=== PATIENT | female | born 1990 | race Caucasian/White ===

== ENCOUNTER 2019-02-21 11:10 | Emergency (ER) | payer OTHER ==
[~2019-02-21] VITALS: Ht 172.7 cm; Wt 108.9 kg
[2019-02-21] MEDS ORDERED: NKM (11:16)
[2019-02-21 11:23] VITALS: BP 119/85
--- NOTE | 2019-02-21 11:24 | NUR ---
ED Nurse Note: Patient ambulated to ER c/o self needle poking incident from doctor's office. 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 Patient alert and oriented x4 and ambulatory. skin clean and intact. calm and cooperative. no acute distress noted at this time.
--- NOTE | 2019-02-21 12:30 | NUR ---
ED Nurse Note: blood drawn and sent to the lab and pt ambulated to bathroom in stable condition with steady gait.
--- NOTE | 2019-02-21 13:29 | NUR ---
ED Nurse Note: called lab for reminder to run the urine test. they have sample and will run the test.
--- NOTE | 2019-02-21 13:47 | Emergency Room Report ---
History of Present Illness General Chief Complaint: General Complaint Source: Patient Present Illness HPI Patient is a 28-year-old female who presented after injury to her right index finger. Patient reportedly had stuck herself accidentally with a needle which had been exposed to patient's blood. Patient was working for [employer]. She reports having mild pain. Patient was known HIV positive with undetectable viral load. Allergies: Coded Allergies: No Known Allergies (Unverified , 02/21/19) Patient History Past Medical History: see triage record Last Menstrual Period: 02/03/19 Now: No : 3 Para: 2 Reviewed Nursing Documentation: PMH: Agreed; PSxH: Agreed Nursing Documentation-PMH Past Medical History: No Stated History Review of Systems All Other Systems: negative except mentioned in HPI Physical Exam Vital Signs Date Time Temp Pulse Resp B/P (MAP) Pulse Ox O2 Delivery O2 Flow Rate FiO2 02/21/19 11:12 98.8 72 16 119/85 (96) 97 Room Air General Appearance: well appearing, no apparent distress, alert, GCS 15, non- toxic, obese Head: normocephalic, atraumatic ENT: hearing grossly normal, normal voice Neck: full range of motion, supple Respiratory: normal inspection, no respiratory distress, speaking full sentences Cardiovascular #1: normal inspection, regular rate, rhythm Gastrointestinal: normal inspection Neurologic: normal inspection, alert, oriented x3, responsive, normal gait Psychiatric: mood/affect normal Skin: other - puntcture wound Medical Decision Making Diagnostic Impression: Primary Impression: Needle stick injury Additional Impression: HIV exposure ER Course Patient presented after a needlestick injury. Differential diagnosis include is not limited to HIV exposure, hepatitis among others. Because of complexity of patient's case laboratory testing and imaging studies were ordered. Based on laboratory testing was ordered. per the patient the needle was contaminated with patient's blood who had an undetectable viral load. Patient will be discharged home. Patient was given prescriptions for Biktarvy. Patient is to follow-up with workers comp clinic.This is to return if any concerns. Labs Test 02/21/19 12:25 02/21/19 12:40 Sodium Level 136 MMOL/L (136-145) Potassium Level 3.8 MMOL/L (3.5-5.1) Chloride Level 103 MMOL/L (98-107) Carbon Dioxide Level 27 MMOL/L (21-32) Anion Gap 6 mmol/L (5-15) Blood Urea Nitrogen 8 mg/dL (7-18) Creatinine 0.6 MG/DL (0.55-1.30) Estimat Glomerular Filtration Rate > 60 mL/min (>60) Glucose Level 109 MG/DL (74-106) Calcium Level 9.0 MG/DL (8.5-10.1) Total Bilirubin 0.3 MG/DL (0.2-1.0) Aspartate Amino Transf (AST/SGOT) 28 U/L (15-37) Alanine Aminotransferase (ALT/SGPT) 51 U/L (12-78) Alkaline Phosphatase 76 U/L (46-116) Total Protein 7.8 G/DL (6.4-8.2) Albumin 3.9 G/DL (3.4-5.0) Globulin 3.9 g/dL Albumin/Globulin Ratio 1.0 (1.0-2.7) HIV (1&2) Antibody Rapid Negative (NEGATIVE) Urine HCG, Qualitative Negative (NEGATIVE) Last Vital Signs Date Time Temp Pulse Resp B/P (MAP) Pulse Ox O2 Delivery O2 Flow Rate FiO2 02/21/19 11:23 72 16 Room Air 02/21/19 11:23 98.8 119/85 97 Status: improved Disposition: HOME, SELF-CARE Condition: Stable Scripts Bictegrav/Emtricit/Tenofov Ala (Biktarvy 50-200-25 mg Tablet) 1 Each Tablet 1 EACH PO DAILY, #30 TAB Prov: Kofi Gill MD 02/21/19 Referrals: NON PHYSICIAN (PCP) Kofi Gill MD Feb 21, 2019 13:47
[2019-02-21] MEDS ORDERED: BIKTARVY 50-201 EACH PO (13:49)
[2019-02-21 14:02] LABS: BASOPHILS % (AUTO) 1.1 % (0.0-2.0); EOSINOPHILS % (AUTO) 2.4 % (0.0-3.0); HEMATOCRIT 42.6 % (37.0-47.0); HEMOGLOBIN 13.9 G/DL (12.0-16.0); LYMPHOCYTES % (AUTO) 22.5 % (20.0-45.0); MEAN CORPUSCULAR VOLUME 87 FL (80-99); MONOCYTES % (AUTO) 7.9 % (1.0-10.0); NEUTROPHILS % (AUTO) 66.1 % (45.0-75.0); PLATELET COUNT 356 K/UL (150-450); RED BLOOD COUNT 4.88 M/UL (4.20-5.40); RED CELL DISTRIBUTION WIDTH 11.6 % (11.6-14.8); WHITE BLOOD COUNT 8.1 K/UL (4.8-10.8)
[2019-02-21 14:06] LABS: ANION GAP 6 mmol/L (5-15); BLOOD UREA NITROGEN 8 mg/dL (7-18); CARBON DIOXIDE 27 MMOL/L (21-32); CHLORIDE 103 MMOL/L (98-107); CREATININE 0.6 MG/DL (0.55-1.30); POTASSIUM 3.8 MMOL/L (3.5-5.1); SODIUM 136 MMOL/L (136-145)
[2019-02-21 14:13] LABS: ALANINE AMINOTRANSFERASE 51 U/L (12-78); ALBUMIN 3.9 G/DL (3.4-5.0); ALKALINE PHOSPHATASE 76 U/L (46-116); ASPARTATE AMINO TRANSFERASE 28 U/L (15-37); BILIRUBIN,TOTAL 0.3 MG/DL (0.2-1.0)
[2019-02-21 14:20] VITALS: BP 123/80
--- NOTE | 2019-02-21 14:20 | NUR ---
ER DISCHARGE NOTE: Patient is cleared to be discharged per ERMD with work compensation papers, pt is aox4, on room air, with stable vital signs. pt was given dc and prescription instructions, pt was able to verbalize understanding, pt id band removed. pt is able to ambulate with steady gait. pt took all belongings.
== END 2019-02-21 14:20 | disposition home or self-care (01) ==
LOC: EMR 11:40
DX: S61.230A Puncture wound without foreign body of right index finger without damage to nail, initial encounter (principal); W46.0XXA Contact with hypodermic needle, initial encounter; Y92.9 Unspecified place or not applicable; Z20.6 Contact with and (suspected) exposure to human immunodeficiency virus [HIV]
CPT/HCPCS: 36415; 80053; 81025; 85025; 86592; 86703; 86803; 87517; 99284